=== PATIENT | female | born 1980 | race Caucasian/White ===

== ENCOUNTER 2021-07-11 08:24 | Observation (INO) | payer OTHER ==
[~2021-07-11] VITALS: Ht 172.7 cm; Wt 127.0 kg
[2021-07-11 10:00] LABS: HEMOGLOBIN 13.4 gm/dl (12.3-15.3); RED BLOOD COUNT 5.07 M/UL (4.00-5.10); WHITE BLOOD COUNT 16.8 K/UL (4.5-11.0)
[2021-07-11 10:28] LABS: BUN/CREATININE RATIO 15 (0-10)
[2021-07-11] MEDS ORDERED: AUGMENTIN 875-1 EACH PO (11:36)
[2021-07-11] MEDS ORDERED: ZITHROMAX250 MG PO (11:36)
[2021-07-11 19:40] LABS: BORDETELLA PARAPERTUSSIS Not Detected (Not Detectd); BORDETELLA PERTUSSIS Not Detected (Not Detectd); CHLAMYDIA PNEUMONIAE Not Detected (Not Detectd); CORONAVIRUS HKU1 Not Detected (Not Detectd); CORONAVIRUS NL63 Not Detected (Not Detectd); CORONAVIRUS OC43 Not Detected (Not Detectd); CORONOAVIRUS 229E Not Detected (Not Detectd); HUMAN METAPNEUMOVIRUS Not Detected (Not Detectd); HUMAN RHINOVIRUS/ENTEROVIRUS Not Detected (Not Detectd); INFLUENZA A Not Detected (Not Detectd); INFLUENZA B Not Detected (Not Detectd); MYCOPLASMA PNEUMONIAE Not Detected (Not Detectd); PARAINFLUENZA VIRUS 1 Not Detected (Not Detectd); PARAINFLUENZA VIRUS 2 Not Detected (Not Detectd); PARAINFLUENZA VIRUS 4 Not Detected (Not Detectd); RESPIRATORY SYNCYTIAL VIRUS Not Detected (Not Detectd)
[2021-07-11 20:39] LABS: PARAINFLUENZA VIRUS 3 DETECTED (Not Detectd); SARS-CoV-2 NOT DETECTED (Not Detectd)
[2021-07-12 04:47] LABS: HEMOGLOBIN 12.3 gm/dl (12.3-15.3)
[2021-07-12 04:55] LABS: BUN/CREATININE RATIO 14 (0-10)
[2021-07-12 04:59] LABS: RED BLOOD COUNT 4.45 M/UL (4.00-5.10); WHITE BLOOD COUNT 22.7 K/UL (4.5-11.0)
[2021-07-12 15:58] LABS: HEMOGLOBIN 11.3 gm/dl (12.3-15.3); RED BLOOD COUNT 4.19 M/UL (4.00-5.10); WHITE BLOOD COUNT 19.1 K/UL (4.5-11.0)
[2021-07-13 06:50] LABS: HEMOGLOBIN 11.9 gm/dl (12.3-15.3); RED BLOOD COUNT 4.37 M/UL (4.00-5.10)
[2021-07-13 07:34] LABS: BUN/CREATININE RATIO 14 (0-10)
[2021-07-13] MEDS ORDERED: AUGMENTIN 875-1 EACH PO (08:59)
[2021-07-13] MEDS ORDERED: ZOFRAN4 MG PO (12:05)
[2021-07-13] MEDS ORDERED: MUCINEX600 MG PO (12:05)
[2021-07-14 11:13] LABS: HBSAG SCREEN Negative (Negative); HEP A AB, IGM Negative (Negative); HEP B CORE AB, IGM Negative (Negative); HEP C VIRUS AB >11.0 (0.0-0.9)
[2021-07-14 15:14] LABS: FINAL INTERPRETATION Negative (.); HIV 1 AB Negative (Negative); HIV 2 AB Negative (Negative)
== END 2021-07-13 16:47 | disposition home or self-care (01) ==
LOC: ER1 08:24 → CDU 17:51 → ER1 17:51 → CDU 17:51 → CCU 18:54 → CDU 18:59 → UNDODEPER 07-12 12:02 → M/S 07-12 14:42
PROVIDERS: Emergency Medicine; Internal Medicine; ADMIT Internal Medicine
DX: J18.9 Pneumonia, unspecified organism (principal); J96.01 Acute respiratory failure with hypoxia; R04.2 Hemoptysis; D72.829 Elevated white blood cell count, unspecified; D64.9 Anemia, unspecified; Z20.822 Contact with and (suspected) exposure to COVID-19
CPT/HCPCS: 0240U; 36415; 71045; 80048; 80053; 80074; 83605; 83735; 84132; 85025; 85027; 86701; 86702; 87040; 87070; 87081; 87205; 87633; 96372; 96374; 96375; 96376; 99285; G0378; J0456; J0696; J1650; J2405; J2543; J2550; J7030; Q9967

== ENCOUNTER → 2021-07-11 | Outpatient (CLI) | payer OTHER ==
[~2021-07-11] MED LIST: AUGMENTIN 875-1 EACH PO; MUCINEX600 MG PO; ZITHROMAX250 MG PO; ZOFRAN4 MG PO
== END ==
LOC: EROP 12:42
DX: J18.9 Pneumonia, unspecified organism (principal); J44.9 Chronic obstructive pulmonary disease, unspecified; R16.2 Hepatomegaly with splenomegaly, not elsewhere classified; K76.0 Fatty (change of) liver, not elsewhere classified; D72.829 Elevated white blood cell count, unspecified; R00.0 Tachycardia, unspecified; R65.10 Systemic inflammatory response syndrome (SIRS) of non-infectious origin without acute organ dysfunction
CPT/HCPCS: 96360; 96361; J1650; J2405; J2550